=== PATIENT | male | born 1935 | race Caucasian/White ===

== ENCOUNTER → 2017-10-16 | Outpatient (CLI) | payer MEDICARE ==
[~2017-10-16] MED LIST: CARDURA4 MG PO; OMEPRAZOLE40 MG
--- NOTE | 2017-10-16 11:59 | Diagnostic Imaging Report ---
PROCEDURE:X-RAY ABDOMEN - KUB COMPARISON:Patients [facility], DX, ABDOMEN-1VIEW (KUB), 03/24/2014, 12:50. INDICATIONS:CALCULUS OF KIDNEY FINDINGS: There is a non-obstructed bowel-gas pattern. Moderate volume of stool within the colon. There are no calcifications projected over the renal shadows, expected course of the ureters or bladder. Splenic artery calcifications again observed. Cholecystectomy clips. There are no acute osseous abnormalities. The lung bases are clear. Bilateral facet arthropathy at L4-L5 and L5-S1, right greater than left. CONCLUSION: Nonobstructive bowel gas pattern. No plain radiography evidence of urolithiasis. Marques Mortensen M.D. Dictated by: Marques Mortensen M.D. on 10/16/2017 at 12:09 Electronically approved by: Marques Mortensen M.D. on 10/16/2017 at 12:09
== END ==
LOC: RAD 09:36
PROVIDERS: ATTEND Urology
DX: N20.0 Calculus of kidney (principal)
CPT/HCPCS: 74018

== ENCOUNTER 2017-11-02 00:06 | Inpatient (IN) | payer MEDICARE ==
[~2017-11-02] VITALS: Ht 167.6 cm; Wt 77.1 kg
[2017-11-02] VITALS (19 sets, daily range): BP systolic 122–148; BP diastolic 51–86
--- OUTSIDE RECORDS SUMMARY | 2017-11-02 00:09 | XMS REPORT ---
Author Author [facility] Address Unknown Phone Unavailable Care Team Providers Care Specifications Checker Name Role Phone NICKY GATICA Unavailable Unavailable Problems This patient has no known problems. Allergies, Adverse Reactions, Alerts This patient has no known allergies or adverse reactions. Medications This patient has no known medications. Results Test Description Test Time Test Comments Text Results Atomic Results Result Comments ABDOMEN-1VIEW (KUB) [place] [id number] Patient Name: MILAN BARGER MR #: [id number] : 1935 Age/Sex: 82/M Req # : [id number] Adm Physician: Ordered by: NICKY GATICA MD Report #: [id number] Location: [facility] Room/Bed: Procedure: [id number] DX/ABDOMEN-1VIEW (KUB) Exam Date: 10/16/17 Exam Time : 1000 REPORT STATUS: Signed PROCEDURE: X-RAY ABDOMEN - KUB COMPARISON: [facility], , ABDOMEN-1VIEW (KUB), 03/24/2014, 12 :50. INDICATIONS: CALCULUS OF KIDNEY FINDINGS: There is a non -obstructed bowel-gas pattern. Moderate volume of stool within the colon. There are no calcifications projected over the renal shadows, expected course of the ureters or bladder. Splenic artery calcifications again observed. Cholecystectomy clips. There are no acute osseous abnormalities. The lung bases are clear. Bilateral facet arthropathy at L4-L5 and L5-S1, right greater than left. CONCLUSION: Nonobstructive bowel gas pattern. No plain radiography evidence of urolithiasis. Marques Hallman M.D. Dictated by: Marques Hallman M.D. on 10/16/2017 at 12: 09 Electronically approved by: aMrques Hallman M.D. on 10/16/2017 at 12:09 Dictated By: EARL HALLMAN MD, MD [id number] Transcribed By: MARTITA on 10/16 120 COPY TO: NICKY GATICA MD
[2017-11-02] MEDS ORDERED: OMEPRAZOLE40 MG PO (00:17)
[2017-11-02] MEDS ORDERED: METOPROLOL TART25 MG PO (00:17)
[2017-11-02] MEDS ORDERED: PANTOPRAZOLE 40 MG 10ML VIAL IV STA (00:18)
[2017-11-02] MEDS ORDERED: ASPIRIN 81 MG CHEW TAB PO ONE (00:30)
[2017-11-02 00:41] LABS: BASOPHILS # (AUTO) 0.1 (0.0-0.1); BASOPHILS % 0.7 % (0.0-1.0); BILIRUBIN,URINE NEGATIVE (NEGATIVE); EOSINOPHILS # (AUTO) 0.1 (0.0-0.4); EOSINOPHILS % 1.3 % (0.0-6.0); HEMATOCRIT 41.8 % (38.2-49.6); HEMOGLOBIN 15.6 g/dL (14.0-18.0); KETONES,URINE NEGATIVE (NEGATIVE); LEUKOCYTE ESTERASE ,URINE NEGATIVE (NEGATIVE); LYMPHOCYTES # (AUTO) 2.4 (1.0-3.2); LYMPHOCYTES % 33.3 % (18.0-39.1); MEAN CORPUSCULAR HEMOGLOBIN 32.4 pg (28-32); MEAN CORPUSCULAR HGB CONC 37.3 g/dL (31-35); MEAN CORPUSCULAR VOLUME 86.9 fL (81-99); MONOCYTES # (AUTO) 0.6 (0.2-0.8); MONOCYTES % 8.6 % (4.4-11.3); NEUTROPHILS # (AUTO) 3.9 (2.1-6.9); NEUTROPHILS % 55.8 % (38.7-80.0); NITRITE,URINE NEGATIVE (NEGATIVE); PLATELET COUNT 169 x10e3/uL (140-360); PROTEIN,URINE DIPSTICK NEGATIVE (NEGATIVE); RED BLOOD COUNT 4.81 x10e6/uL (4.3-5.7); RED CELL DISTRIBUTION WIDTH 11.9 % (11.7-14.4); URINE UROBILINOGEN 0.2 mg/dL (0.2 - 1)
[2017-11-02 00:42] LABS: CLARITY,URINE CLEAR (CLEAR); COLOR,URINE YELLOW (YELLOW)
[2017-11-02 00:49] LABS: BACTERIA,URINE RARE /HPF; WBC,URINE (MAN) 0-5 /HPF (0-5)
[2017-11-02 00:51] LABS: INR 1.06; PARTIAL THROMBOPLASTIN TIME 32.6 seconds (23.8-35.5)
[2017-11-02 01:01] LABS: ALBUMIN 3.6 g/dL (3.5-5.0); ANION GAP 13.8 mmol/L (8-16); CREATININE, SERUM 1.16 mg/dL (0.72-1.25); MAGNESIUM 2.2 MG/DL (1.3-2.1); POTASSIUM 3.8 mmol/L (3.5-5.1)
[2017-11-02 01:02] LABS: CREATINE KINASE MB 11.1 ng/mL (0-5.0)
--- NOTE | 2017-11-02 01:55 | Diagnostic Imaging Report ---
EXAMINATION: CHEST 2 VIEWS INDICATION: Chest pain. COMPARISON: 06/18/2015 FINDINGS: TUBES and LINES: None. LUNGS: Lungs are not well inflated. Lungs are clear. There is no evidence of pneumonia or pulmonary edema. PLEURA: No pleural effusion or pneumothorax. HEART AND MEDIASTINUM: The cardiomediastinal silhouette is unremarkable. There are atherosclerotic calcifications within the aorta. BONES AND SOFT TISSUES: No acute osseous lesion. Soft tissues are unremarkable. UPPER ABDOMEN: No free air under the diaphragm. IMPRESSION: No acute thoracic abnormality. Signed by: Dr. Best Bernardo M.D. on 11/02/2017 1:52 AM
[2017-11-02] MEDS ORDERED: CLOPIDOGREL BISULFATE 75 MG TAB PO ONE (03:00)
[2017-11-02] MEDS ORDERED: MORPHINE SULFATE 2 MG/ML SYR IV STA (03:00)
[2017-11-02] MEDS ORDERED: NITROGLYCERIN 2% OINT 1 GM PKT TOP ONE (03:00)
[2017-11-02] MEDS ORDERED: ONDANSETRON HCL INJ 2 MG/ML VIAL IV STA (03:00)
[2017-11-02] MEDS ORDERED: SODIUM CHLORIDE 0.9% 1000ML 1,000 ML IV STA (03:00)
--- NOTE | 2017-11-02 04:31 | Diagnostic Imaging Report ---
EXAM: CT Chest WITH contrast 11/02/2017 3:00 AM INDICATION: Shortness of breath COMPARISON: None TECHNIQUE: Chest was scanned utilizing a multidetector helical scanner from the lung apex through the level of the diaphragm after administration of IV contrast. Thin section reconstructions were obtained with special concentration on the pulmonary arteries. Coronal and sagittal reformations were obtained. Pulmonary embolism protocol was performed. IV CONTRAST: 100 cc of Isovue-370 RADIATION DOSE: Total DLP: 532.08 mGy*cm Estimated effective dose: (DLP x 0.014 x size factor) mSv COMPLICATIONS: None FINDINGS: LINES/ TUBES: None. LUNGS AND AIRWAYS: No filling defect is identified within the pulmonary arteries to the segmental level. The lungs are unremarkable. Airways are normal. Small sliding hiatal hernia present. PLEURA: The pleural spaces are clear. HEART AND MEDIASTINUM: The thyroid gland is normal. No mediastinal, hilar or axillary lymphadenopathy. The heart is normal in size.. There is no pericardial effusion. There are significant atherosclerotic calcifications in the aorta and coronary arteries.. Main pulmonary artery measures 2.9 cm in diameter . UPPER ABDOMEN: Limited non-contrast views of the upper abdomen show no abnormality within the visualized liver, spleen, pancreas, or kidneys. The adrenal glands are normal. BONES: The visualized bony thorax is within normal limits. SOFT TISSUES: Unremarkable. IMPRESSION: No evidence of acute intrathoracic abnormality, no evidence of pulmonary embolism. Signed by: Dr. Best Bernardo M.D. on 11/02/2017 4:27 AM
[2017-11-02] MEDS ORDERED: ONDANSETRON HCL INJ 2 MG/ML VIAL IV PRN (04:45)
[2017-11-02] MEDS ORDERED: MORPHINE SULFATE 2 MG/ML SYR IV PRN (04:45)
[2017-11-02] MEDS ORDERED: ENOXAPARIN SODIUM INJ 100 MG/ML SYR SC SCH (05:00)
[2017-11-02] MEDS ORDERED: SODIUM CHLORIDE 0.9% 1000ML 1,000 ML IV SCH ×2 (05:15→12:47)
[2017-11-02] MEDS ORDERED: SODIUM CHLORIDE 0.9% 50ML 50 ML ONE (05:20)
[2017-11-02] MEDS ORDERED: IOPAMIDOL 370 MG/ML 200 ML INFUS..BTL INJ ONE (05:20)
[2017-11-02 05:43] LABS: CREATINE KINASE MB 18.1 ng/mL (0-5.0)
[2017-11-02] MEDS ORDERED: ENOXAPARIN INJ 80 MG/0.8 ML SYR SC SCH (06:00)
[2017-11-02] MEDS: NITROGLYCERIN 2% OINT 1 GM PKT TOP SCH ×2 (06:30→18:00)
[2017-11-02] MEDS: ASPIRIN 325 MG TAB EC PO SCH (07:28)
[2017-11-02] MEDS: PANTOPRAZOLE SOD 40 MG TABEC PO SCH (07:28)
[2017-11-02] MEDS: FAMOTIDINE 20 MG/2 ML VIAL IV SCH ×2 (07:28→23:14)
--- NOTE | 2017-11-02 10:09 | History and Physical ---
PRIMARY CARE PHYSICIAN: Jp Mcneill MD CHIEF COMPLAINT: Chest pain. HISTORY OF PRESENT ILLNESS: This is an 82-year-old man, with a history of hypertension and GERD, now developing substernal chest pain with radiation to bilateral arms. No shortness of breath, dizziness, diaphoresis, or nausea. Here his enzyme is elevated; he is beginning to elevate his cardiac enzymes. He is admitted for further evaluation and management. PAST MEDICAL HISTORY: Hypertension, GERD, Duke esophagus, hemorrhoids, diverticulosis, gastritis, hyperplastic colonic polyp, esophageal stricture status post dilatation in August 2017. PAST SURGICAL HISTORY: Cholecystectomy, bilateral cataract surgery, prostate laser surgery, appendectomy, esophageal stricture dilatation. ALLERGIES: PER ELECTRONIC MEDICAL RECORD. FAMILY HISTORY: Patient's parents are . Mother had Parkinson disease. Father had a myocardial infarction. SOCIAL HISTORY: The patient is . He has 6 children. No alcohol, illicits or cigarettes. He only smoked briefly as a young man. 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 MEDICATIONS AT HOME: Doxazosin, metoprolol and omeprazole. REVIEW OF SYSTEMS: Denies any dizziness, nausea or vomiting. PHYSICAL EXAMINATION VITAL SIGNS: Have been reviewed. GENERAL: A tired-appearing man resting in bed. HEENT: Anicteric. Pupils are responsive to light. No oral lesions. CARDIOVASCULAR: Normal S1 and S2. LUNGS: Moderate breath sounds. ABDOMEN: Soft, nontender, nondistended. EXTREMITIES: No edema or calf tenderness. NEUROLOGIC: Alert, oriented times 3, moving all extremities. SKIN: Dry. PSYCHIATRIC: Normal affect. LABS: Reviewed. MEDICATIONS: Reviewed. ASSESSMENT AND PLAN: This is an 82-year-old man. 1. Luj-PT-voqcgvomg myocardial infarction. We will continue with aspirin and statin. He has not received any beta malathi. His heart rate has been reduced. 2. Abnormal electrocardiogram with T-wave inversions and biphasic changes of the T waves. 3. Gastroesophageal reflux disease. Will use PPI or Pepcid. 4. Metabolic acidosis. 5. Prophylaxis: Will use PPI while the patient is on Lovenox treatment dose. 6. Disposition: Follow up cardiology's recommendations. Likely heart catheterization will be needed. Job#: [id number]
--- NOTE | 2017-11-02 10:47 | Consultation ---
DATE OF CONSULTATION: November 02, 2017 CARDIOLOGY CONSULTATION Thank you so much for asking me to see this nice man in consultation. Mr. Palma is a pleasant 81-year-old man known to me for the last 20 years who was originally referred to me for hypertension and hyperlipidemia. CHIEF COMPLAINT: He presents to the emergency room overnight with a complaint of substernal chest discomfort. HISTORY OF PRESENT ILLNESS: The patient reports he was sitting watching the Olympics, and developed some pressure across his chest and some discomfort in the epigastric region. He reports that this did not go away. It was first time he had ever had this problem. It did radiate somewhat to both arms and continued until he presented to the emergency room where he was given aspirin and nitroglycerin. PAST MEDICAL HISTORY: Significant for hypertension and hyperlipidemia. His last stress test was February of 2017, which was negative. SURGICAL HISTORY: He had a remote hernia repair, appendectomy, prostatectomy in August 2005, cholecystectomy in October 2005, bilateral cataracts in 2006, and endoscopy with dilatation of the esophagus in August 2017. CURRENT MEDICATIONS 1. Doxazosin 4 mg daily. 2. Omeprazole 40 mg daily. 3. Metoprolol succinate ER 50 mg daily. FAMILY HISTORY: Father at 78 of a myocardial infarction. Both brothers had coronary artery bypass graft surgery, although they were smokers. His mother with Parkinson's disease. PERSONAL AND SOCIAL HISTORY: He does not smoke or drink. REVIEW OF SYSTEMS GI: He has had multiple problems with diverticulosis and the esophagus as above. PHYSICAL EXAMINATION GENERAL: Shows a pleasant and alert man who is now comfortable. VITALS: Blood pressure is 130/70. HEENT: Unremarkable. NECK: No jugular venous distention. THORAX: Heart sounds S1 and S2 are equal. No murmurs. LUNGS: Clear. ABDOMEN: Protuberant. Normal bowel sounds and nontender. EXTREMITIES: No cyanosis, clubbing or edema. EKG initially is unremarkable, although repeat EKG showed lateral T-wave inversions. Troponins are abnormal. BUN 14, creatinine 1.1. Hemoglobin 15.6 and white count 7. ASSESSMENT 1. New-onset angina with abnormal troponins. 2. History of hypertension. 3. History of hyperlipidemia. PLAN: The patient has already been given aspirin and nitropaste and a single dose of Lovenox. Will plan to perform left heart catheterization today with further management based on results of the study. Job#: [id number] RI cc:RICHIE PINEDO MD
[2017-11-02] MEDS ORDERED: SODIUM CHLORIDE 0.9% 1000ML 1,000 ML PRN (10:59)
[2017-11-02] MEDS ORDERED: LIDOCAINE HCL 2% LOCAL 20 ML VIAL PRN (10:59)
[2017-11-02] MEDS ORDERED: IOPAMIDOL 370 MG/ML 200 ML INFUS..BTL INJ PRN (10:59)
[2017-11-02] MEDS ORDERED: HEPARIN SOD/SOD CHLORIDE 2,000 ML PRN (10:59)
[2017-11-02] MEDS ORDERED: FENTANYL CITRATE/PF 100MCG/2 ML INJ PRN (11:55)
[2017-11-02] MEDS ORDERED: MIDAZOLAM HCL 2 MG/2 ML VIAL PRN (11:56)
[2017-11-02 16:48] LABS: CREATINE KINASE MB 26.7 ng/mL (0-5.0)
[2017-11-02] MEDS: ENOXAPARIN INJ 80 MG/0.8 ML SYR SC SCH (18:19)
[2017-11-02] MEDS: SIMVASTATIN 20 MG TAB PO SCH (23:14)
[2017-11-03] VITALS (9 sets, daily range): BP systolic 124–139; BP diastolic 61–93
[2017-11-03] MEDS: ENOXAPARIN INJ 80 MG/0.8 ML SYR SC SCH ×2 (06:08→18:00)
[2017-11-03] MEDS: NITROGLYCERIN 2% OINT 1 GM PKT TOP SCH ×4 (06:08→17:45)
[2017-11-03 06:21] LABS: BASOPHILS % 0.6 % (0.0-1.0); EOSINOPHILS # (AUTO) 0.1 (0.0-0.4); EOSINOPHILS % 1.1 % (0.0-6.0); HEMATOCRIT 36.4 % (38.2-49.6); HEMOGLOBIN 13.4 g/dL (14.0-18.0); LYMPHOCYTES # (AUTO) 1.5 (1.0-3.2); LYMPHOCYTES % 22.7 % (18.0-39.1); MEAN CORPUSCULAR HEMOGLOBIN 32.4 pg (28-32); MEAN CORPUSCULAR HGB CONC 36.8 g/dL (31-35); MEAN CORPUSCULAR VOLUME 88.1 fL (81-99); MONOCYTES # (AUTO) 0.7 (0.2-0.8); NEUTROPHILS # (AUTO) 4.2 (2.1-6.9); NEUTROPHILS % 65.3 % (38.7-80.0); PLATELET COUNT 139 x10e3/uL (140-360); RED BLOOD COUNT 4.13 x10e6/uL (4.3-5.7)
[2017-11-03 06:43] LABS: ALBUMIN 3.1 g/dL (3.5-5.0); ALBUMIN/GLOBULIN RATIO 1.1 (0.8-2.0); CALCIUM 8.1 mg/dL (8.4-10.2); CHOL/HDL RATIO 4.6 (3.9-4.7); CREATININE, SERUM 1.19 mg/dL (0.72-1.25)
[2017-11-03] MEDS ORDERED: DOXAZOSIN MESYLATE 4 MG PO SCH (09:00)
[2017-11-03] MEDS ORDERED: ASPIRIN 325 MG TAB PO SCH (09:00)
[2017-11-03] MEDS: FAMOTIDINE 20 MG/2 ML VIAL IV SCH ×2 (09:05→22:00)
[2017-11-03] MEDS: ASPIRIN 325 MG TAB EC PO SCH (09:05)
[2017-11-03] MEDS: METOPROLOL TARTRATE 25 MG TAB PO SCH (09:05)
[2017-11-03] MEDS: DOXAZOSIN MESYLATE 2 MG TAB PO SCH (09:05)
[2017-11-03] MEDS: PANTOPRAZOLE SOD 40 MG TABEC PO SCH (09:06)
--- NOTE | 2017-11-03 10:28 | Progress Note ---
DATE: November 03, 2017 OVERNIGHT: No acute events. SUBJECTIVE/REVIEW OF SYSTEMS: The patient denies any dizziness, chest pain, shortness of breath, fever, chills, sweats, nausea, vomiting, diarrhea, or constipation this a.m. HISTORY OF PRESENT ILLNESS: This 82-year-old man presented to [facility] late last night after experiencing chest pains at home. The patient was admitted and taken to the cardiac medical lab director where diagnostic catheterization occurred per cardiology. Per cardiology notes, the patient is now pending surgical consult. The patient does have a positive history for hypertension and hyperlipidemia. PHYSICAL EXAMINATION VITAL SIGNS: This a.m. are T 97.6, P 76, respirations 16, blood pressure 138/71. O2 sat on room air is 95%. HEENT: The patient is normocephalic without oral lesions noted. GENERAL: Elderly tired-appearing man resting supine in bed. CARDIOVASCULAR: S1 and S2 appreciated with distal irregular systolic murmur. LUNGS: Diminished breath sounds in bilateral castellanos. ABDOMEN: Soft, not tender nor distended. EXTREMITIES: No edema or calf tenderness. One plus pulses bilaterally. NEUROLOGIC: The patient is A and O times 3, and moves all extremities with good muscle strength. SKIN: Dry and intact. PSYCHIATRIC: Normal affect. LABS: A.m. white count 6.4, H and H 13.4 and 36.4, and platelets are 139,000. CMP finds a sodium of 138, potassium 4, chloride 108, GFR slightly diminished at 59, and magnesium 8.1. Albumin is 6. Lipid panel indicative of triglycerides at 187, HDL 29. MEDICATIONS: The patient is takin. Protonix 40 mg p.o. daily. 2. Doxazosin 4 mg p.o. daily. 3. Metoprolol 25 mg p.o. daily. 4. Pepcid 20 mg q.12 h. IV. 5. Aspirin 325 mg q.a.m. 6. Lovenox 80 mg q.12 h. subcutaneous. 7. Nitroglycerin ointment q.6 h. 0.5 g. 8. Zocor 20 mg p.o. at nighttime. ASSESSMENT AND PLAN: This is an 82-year-old man with: 1. Nro-GW-zeofbpj elevation myocardial infarction: Will continue with medications as noted above. Diagnostic cardiac catheterization report reviewed. Cardiovascular surgery consult pending. 2. Echocardiogram abnormalities: Continue with IMU telemetry monitoring. 3. Gastroesophageal reflux disease: Meds as above. 4. Metabolic acidosis: Continue supportive intravenous therapy and monitor a.m. labs. 5. Prophylaxis: Per medications as above. 6. Disposition: Pending cardiovascular surgery consult for likely intervention on this day. Obtain labs in a.m. DICTATED BY YOLA TURK NP Job#: [id number] RI
--- NOTE | 2017-11-03 14:18 | Operative Report ---
DATE OF PROCEDURE: November 02, 2017 PROCEDURE: Cardiac catheterization. The patient was brought to the engineer geophysical laboratory in a fasting partially sedated state for chest discomfort and abnormal troponins. He was premedicated with a 0.5 mg of Versed. The right groin prepped and scrubbed, and 2% Xylocaine. A 4-Sudanese sheath was placed in the right common femoral artery. Cardiac catheterization was performed with a 4-Sudanese pigtail, and 4-Sudanese right and left Neno catheters. The left ventriculogram shows abnormal function with mild global hypokinesis and more marked inferior hypokinesis. Estimated ejection fraction 35%. The right coronary artery is diffusely diseased with proximal 70% and mid 60% and 30% stenosis. There is a distal 99% stenosis before the posterior descending artery. The collaterals originate from the proximal right coronary and go to the anterior wall apparently to the LAD. The left main is cannulated initially with the left 4-Neno and then a left 5-Neno demonstrating about 50% stenosis of the midleft main. The left main and proximal LAD are calcified. Ramus vessel is a medium to large vessel without significant disease. The proximal LAD is calcified as mentioned above with about a 60% stenosis in its proximal portion. The first diagonal is a medium size vessel with 2 different 90% stenosis. The LAD has about a 99% stenosis after the 1st diagonal and before the 2nd diagonal. The LAD appears to be totally occluded after the 2nd diagonal with collateral filling, both antegrade and from the right coronary. Distal LAD is not well seen. The circumflex proximally is unremarkable. There is about a 60% stenosis in the circumflex before the origination of a large obtuse marginal vessel on the posterior wall. The left internal mammary artery is injected with the right Neno catheter, and demonstrates a proximal branch that has considerable flow, but the GO is a good vessel that goes almost all the way to the diaphragm. The catheters were removed, and pressure was held. He was returned to his room in stable condition. FINAL IMPRESSION 1. Abnormal left ventricular function with global hypokinesis, more marked inferior hypokinesis. Estimated ejection fraction 35%. 2. Severe 3-vessel and left main coronary disease. 3. Right coronary artery with 70%, 60% and 30% and distal 99% stenoses. 4. A 50% left main stenosis. 5. Diffuse left anterior descending disease with 99% and 100% stenoses of the midportion of the left anterior descending, and 90% stenosis of the 1st diagonal. 6. A 60% stenosis of the circumflex. 7. Unremarkable ramus vessel. 8. Please note the early branch of the left internal mammary artery. 9. Recommend grafts to the left anterior descending, diagonal 1, diagonal 2, diagonal 3, obtuse marginal, and posterior descending artery. No complications. No blood loss. Job#: [id number] RI cc:MD JAKI IGLESIAS MD
[2017-11-03] MEDS: SIMVASTATIN 20 MG TAB PO SCH (22:00)
[2017-11-04] VITALS (7 sets, daily range): BP systolic 117–177; BP diastolic 49–89
[2017-11-04] MEDS: NITROGLYCERIN 2% OINT 1 GM PKT TOP SCH ×3 (00:33→12:25)
[2017-11-04] MEDS: ENOXAPARIN INJ 80 MG/0.8 ML SYR SC SCH (06:41)
[2017-11-04 07:27] LABS: ANION GAP 11.9 mmol/L (8-16); CALCIUM 8.3 mg/dL (8.4-10.2); CREATININE, SERUM 1.16 mg/dL (0.72-1.25); POTASSIUM 3.9 mmol/L (3.5-5.1)
[2017-11-04] MEDS: DOXAZOSIN MESYLATE 2 MG TAB PO SCH (07:59)
[2017-11-04] MEDS: ASPIRIN 325 MG TAB EC PO SCH (07:59)
[2017-11-04] MEDS: PANTOPRAZOLE SOD 40 MG TABEC PO SCH (07:59)
[2017-11-04] MEDS: FAMOTIDINE 20 MG/2 ML VIAL IV SCH (07:59)
[2017-11-04] MEDS: METOPROLOL TARTRATE 25 MG TAB PO SCH (07:59)
[2017-11-04] MEDS ORDERED: MORPHINE SULFATE 2 MG/ML SYR IV PRN (08:15)
[2017-11-04] MEDS ORDERED: NITROGLYCERIN 0.4 MG SUBL SL PRN (08:15)
[2017-11-04] MEDS ORDERED: NITROGLYCERIN 0.4 MG SUBL SL ONE (09:00)
--- NOTE | 2017-11-04 11:10 | Consultation ---
DATE OF CONSULTATION: November 03, 2017 REASON FOR CONSULT: Coronary artery disease and evaluation for coronary bypass surgery; requested by Dr. Mulugeta Rashid. 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 Jp Mcneill HISTORY: I saw and evaluated this patient on November 03, 2017. He is a very nice 82-year-old man who developed chest pain for the first time while watching the Olympics. The chest pressure radiated from the sternum to the epigastrium. He had some limited radiation to the arms. He came to the emergency room where it resolved with nitroglycerin. Cardiac enzymes were elevated. Troponin peaked at 3.091. Cardiac catheterization was performed by Dr. Rashid on November 02, 2017. This shows multiple coronary artery lesions. There is a 50% to 60% left main lesion, serial lesions in the LAD with a subtotal occlusion, a 60% lesion in the midcircumflex, and 2 high-grade lesions in the mid and distal RCA. Ejection fraction was 30% to 35% on left ventriculogram. Of note, on the catheterization, there was a high branch of the left internal mammary artery. Consideration for surgery is now recommended. No fever or chills. No history of prior myocardial infarction or chest pain. Denies any symptoms of TIA or stroke. There is a history of hypertension. The patient is not a smoker and is not diabetic. PAST MEDICAL HISTORY: Positive for hypertension, gastroesophageal reflux, Duke's esophagus, hemorrhoids, diverticulosis, hyperplastic colon polyps, esophageal stricture. PAST SURGICAL HISTORY: Positive for cholecystectomy, bilateral cataract surgery, appendectomy, and esophageal stricture. ALLERGIES: NONE KNOWN. MEDICATIONS: At home, doxazosin, metoprolol and omeprazole. SOCIAL HISTORY: Patient is with 6 children. No alcohol. No smoking. 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 No IV drugs. FAMILY HISTORY: Mother had Parkinson disease and father had myocardial infarction. REVIEW OF SYSTEMS GENERAL: Negative for fatigue and malaise. NEUROLOGIC: Negative for focal weakness in the extremities or dysarthria. HEENT: Negative for decreased vision or decreased hearing. CARDIAC: Positive as above. Negative for palpitations. PULMONARY: Negative for shortness of breath or wheezing. GI: No constipation or diarrhea. : Negative for hematuria or dysuria. ENDOCRINE: Negative for polyuria or polydipsia. VASCULAR: Negative for claudication. SKIN: Negative for rashes or itching. HEMATOLOGIC: Negative for clotting or bleeding. INFECTIOUS: Negative for fevers or sweating. PSYCHIATRIC: Negative for depression or anxiety. PHYSICAL EXAMINATION GENERAL: A well-developed, well-nourished man. and 4 of his children are at his bedside. VITAL SIGNS: Blood pressure 130/70, pulse 80 and regular, respirations 16 and unlabored. NECK: Supple and nontender. No JVD. CARDIAC: Shows a regular rate and rhythm. There is a normal S1 and S2. There is no S3, S4, rub, or murmur. LUNGS: Clear to auscultation and percussion bilaterally. ABDOMEN: Globoid and benign. Good bowel sounds. No hepatosplenomegaly. BACK: No CVA tenderness. No muscular spasm. EXTREMITIES: No cyanosis, clubbing or edema. VASCULAR: Carotids are 2+/2+ bilaterally. No carotid bruits. Radialis 2+/2+ bilaterally. Brachials 2+/2+ bilaterally. Ulnar is 1+/2+ bilaterally. Femorals 2+/2+ bilaterally. Dorsalis pedis pulses are 1+/2+ bilaterally. MUSCULOSKELETAL: Range of motion at all joints. No evidence of swelling. SKIN: No rashes or nonhealing ulcers. NEUROLOGIC: Cranial nerves II-XII are intact. Sensation intact to light touch and pinprick bilaterally. Strength is 5/5 in all extremities. LYMPHATICS: Negative for cervical, clavicular, femoral adenopathy. LABORATORY: Cardiac catheterization is reviewed and is as above. I reviewed this on a CD at [facility]. Creatinine 1.19, sodium 138, potassium 4, albumin 3.1. Total bilirubin 0.8. Liver function tests are normal. IMPRESSION: Appropriate candidate for coronary bypass grafting. Evaluation for surgery has been initiated. I discussed the operation with the patient and his family. Plan will be for transfer to [facility] in the [facility] to continue evaluation. Thank you very much for asking me to see this nice man. Job#: [id number] SANDRA
--- NOTE | 2017-11-04 12:21 | Progress Note ---
DATE: November 04, 2017 TIME: 10:45 a.m. MEDICINE PROGRESS NOTE OVERNIGHT: One episode of dizziness when trying to sit up on bedside, resolved when returned supine. Denies any other chest pain, shortness of breath, fever, chills, sweats, nausea, vomiting, diarrhea, or constipation. PHYSICAL EXAMINATION VITAL SIGNS: This morning found the patient with a temperature of 99.0 orally, pulse 59 to 74 and regular, respiratory rate 19, BP 142/67, and O2 sat 97 on room air. GENERAL APPEARANCE: This is a very tired-appearing man, resting supine in bed. HEENT: Normocephalic without oral lesions. Oral mucosa moist and intact. CARDIOVASCULAR: S1 and S2 appreciated without extra cardiac sounds noted. LUNGS: Diminished breath sounds in all castellanos. No cough. ABDOMEN: Soft, nontender, nondistended. EXTREMITIES: No clubbing, edema or calf tenderness. 1+ to 2+ DP pulses bilaterally. NEUROLOGIC: A and O times 3, moves all extremities with +2 muscle strength times 4. SKIN: Dry and intact. PSYCHIATRIC: Normal affect. LABS: Values this a.m. for BMP include a sodium of 140, potassium 3.9, chloride 110, CO2 of 22, gap 11.9, BUN 13, creatinine 1.16, and a GFR of approximately 60. Calcium diminished at 8.3. Previous day value, AST was 35. Lipid panel reviewed. MEDICATIONS: The patient is getting; 1. Nitroglycerin 0.4 mg p.r.n. sublingual. 2. Morphine sulfate 2 mg q.2 hours p.r.n. IV chest pain. 3. Zofran 4 mg p.r.n. IV nausea and vomiting. 4. Cardura 4 mg p.o. daily. 5. Metoprolol 25 mg p.o. daily. 6. Protonix 40 mg p.o. daily. 7. Pepcid 20 mg q.12 hours IV.\E\ 8. Aspirin 325 p.o. q.a.m. 9. Nitroglycerin 2% ointment 0.5 g q.6 hours topically, initiated this a.m. 10. Lovenox 80 mg q.12 hours. 11. Zocor 20 mg p.o. q.h.s. 12. Morphine sulfate 2 mg q.3 hours p.r.n. for moderate pain. ASSESSMENT AND PLAN: This is an 82-year-old man with 1. Non-ST segment elevation myocardial infarction: Continue medications as indicated above. Diagnostic cardiac catheterization report reviewed. Cardiovascular surgery recommends coronary artery bypass graft. 2. Echocardiogram abnormalities: We will continue with IMU telemetry monitoring and bedrest as tolerated. 3. Gastroesophageal reflux disease: Continue with Protonix and Pepcid. 4. Metabolic acidosis: Continue IV therapy gap as above. 5. Prophylaxis. Patient is receiving Lovenox and Pepcid. 6. Disposition. Cardiovascular surgery note reviewed and patient is pending transfer this day to [facility] for impending coronary artery bypass graft procedure. Dictated By: Shayy Choe NP Job#: [id number] EMANUEL
== END 2017-11-04 14:23 | disposition short-term general hospital (02) | DRG 281 ==
LOC: ER 00:06 → ERHOLD 04:47 → IMCU 13:28
PROVIDERS: ADMIT Internal Medicine; ATTEND Internal Medicine
PROC: 4A023N7 Measurement of Cardiac Sampling and Pressure, Left Heart, Percutaneous Approach (ICD-10-PCS; principal; 2017-11-02)
PROC: B2150ZZ Fluoroscopy of Left Heart using High Osmolar Contrast (ICD-10-PCS; principal; 2017-11-02)
PROC: B2110ZZ Fluoroscopy of Multiple Coronary Arteries using High Osmolar Contrast (ICD-10-PCS; principal; 2017-11-02)
DX: I21.4 Non-ST elevation (NSTEMI) myocardial infarction (principal); E87.2 Acidosis; I25.119 Atherosclerotic heart disease of native coronary artery with unspecified angina pectoris; K21.9 Gastro-esophageal reflux disease without esophagitis; Z82.49 Family history of ischemic heart disease and other diseases of the circulatory system; N40.0 Benign prostatic hyperplasia without lower urinary tract symptoms
CPT/HCPCS: 36140; 36415; 71046; 71260; 77002; 80048; 80053; 80061; 81001; 82150; 82550; 82553; 83690; 83735; 84484; 85025; 85610; 85730; 87086; 93005; 93306; 93452; 93458; 96360; 99285; C1766; J1650; J2001; J2250; J2270; J2405; J7030; Q9967